=== PATIENT | male | born 1990 | race Caucasian/White ===

== ENCOUNTER 2016-08-28 19:50 | Emergency (ER) | payer OTHER ==
[~2016-08-28] VITALS: Ht 170.2 cm; Wt 59.0 kg
[2016-08-28 19:59] VITALS: BP 147/85
--- NOTE | 2016-08-28 19:59 | NUR ---
BIBA TO ER TRIAGE ROOM
[2016-08-28] MEDS ORDERED: LORazepam 1 MG TAB PO ONE ×2 (20:05→21:35)
--- NOTE | 2016-08-28 20:05 | NUR ---
ANGÉLICA FOUND WALKING AROUND [employer], HE WAS JUST WALKING AROUND, NOT MAKING SENSE, PT STATES LAST TIME HE HAS TAKEN "METH" WAS 3 DAYS AGO, PT STATES HE SMOKED WEED TODAY, PT STATES HE FEELS STRESSED OUT NOW
--- NOTE | 2016-08-28 20:09 | NUR ---
AMBULATED FROM ER BED 3 FROM TRIAGE ACCOMPANIED BY [facility] CREW
--- NOTE | 2016-08-28 21:21 | NUR ---
Patient being evaluated by physician DR DONOHUE at bedside.
[2016-08-28 22:53] VITALS: BP 137/82
--- NOTE | 2016-08-28 22:53 | NUR ---
Patient discharged with v/s stable. Written and verbal after care instructions given and explained. Patient verbalized understanding. Ambulatory with steady gait. All questions addressed prior to discharge. Advised to follow up with PMD. PT MOM IS HERE AND WILL BRING PT HOME
== END 2016-08-28 22:53 | disposition home or self-care (01) ==
LOC: MED 19:50
DX: F19.90 Other psychoactive substance use, unspecified, uncomplicated (principal); F32.9 Major depressive disorder, single episode, unspecified; F17.200 Nicotine dependence, unspecified, uncomplicated
CPT/HCPCS: 36415; 80053; 80305; 81001; 83690; 85025; 93005; 99285; G0482

== ENCOUNTER 2019-02-08 10:31 | Inpatient (IN) | payer OTHER ==
[2019-02-08] VITALS (8 sets, daily range): BP systolic 116–150; BP diastolic 75–103
[~2019-02-08] VITALS: Ht 167.6 cm; Wt 63.5 kg
--- NOTE | 2019-02-08 10:31 | NUR ---
PATIENT BIBA TO BED 4 AT THIS TIME.
--- NOTE | 2019-02-08 10:31 | NUR ---
PT PLACED IN BED 4 BY [place] [id number] AND [facility].
--- NOTE | 2019-02-08 10:40 | NUR ---
PT ARRIVED WITH O2 SAT OF 100% 10LMP WHILE RECEIVING TREATMENT, O2 SAT BEGAN TO DROP TO 85% AFTER ARRIVAL TO ED. RT CALLED TO PLACE PT ON BIPAP.
--- NOTE | 2019-02-08 10:40 | NUR ---
X RAY AT BEDSIDE.
--- NOTE | 2019-02-08 10:48 | NUR ---
PT BIB MEDICS IN RESPIRATORY DISTRESS, PLACED ON DEMPSEY V60 BIP[address] ST 12\5 RR 12 FIO2 100,PT WEARING MED SIZE MASK, IN HF ALERT,BS RALES,SPO2 WAS 80 ,INCREASED TO 100 WITH BIPAP, GEL UNDER MASK ,ABG DRAWN AND REPORTED TO DR. VERONIKA MORROW PLUGGED INTO RED OUTLET
--- NOTE | 2019-02-08 10:48 | NUR ---
INFORMED DR. BANDA OF TACHYCARDIA 168 AND TACHYPNEA 41RR AND REQUESTED MEDICATION. PER DR. BANDA, NO MEDICATION NEEDED AT THIS TIME BECAUSE PT NEEDS TO BE DIALYZED.
[2019-02-08] MEDS ORDERED: PHO667 PO (10:49)
[2019-02-08] MEDS ORDERED: METO25TE2 PO (10:49)
[2019-02-08] MEDS ORDERED: FOLI1TAB90 PO (10:49)
--- NOTE | 2019-02-08 10:56 | NUR ---
Patient being evaluated by Dr. Lee at bedside.
--- NOTE | 2019-02-08 11:00 | NUR ---
ANGÉLICA FROM DIALYSIS CENTER WAITING ROOM W C/O SOB STARTING TODAY. PT WAS GOING TO RECEIVE DIALYSIS BUT BEGAN TO HAVE SOB IN THE WAITING ROOM. PT HAS BACILIO CATH TO R UPPER CHEST, DOES NOT HAVE SHUNT YET. PT IS TACHCARDIC AT 157 BPM, RR 35. HX METH/THC ABUSE, PT DENIES RECENT METH USE, STATES HE USED MARIJUANA YESTERDAY. LUNG SOUNDS WHEEZING THROUGHOUT, BREATHING IS LABORED AND TACHYPNEIC. PT SKIN IS DIAPHORETIC. PT DENIES PAIN. LAST DIALYSIS 02/05/19, NORMALLY T, TH, SAT. BED IN LOW POSITION, SIDE RAIL UP X1
[2019-02-08 11:02] LABS: BASOPHILS # (AUTO) 0.2 K/uL (0.00-0.22); BASOPHILS % (AUTO) 1.6 % (0.0-2.0); EOSINOPHILS % (AUTO) 0.1 % (0.0-4.0); HEMATOCRIT 24.9 % (36-52); HEMOGLOBIN 7.7 g/dL (12.0-18.0); LYMPHOCYTES # (AUTO) 1.2 K/uL (2.0-11.5); LYMPHOCYTES % (AUTO) 10.4 % (20.5-51.1); MEAN CORPUSCULAR HEMOGLOBIN 28 pg (27-31); MEAN CORPUSCULAR HGB CONC 31 g/dL (33-37); MEAN CORPUSCULAR VOLUME 89.8 fL (80-94); MONOCYTES # (AUTO) 0.4 K/uL (0.8-1.0); MONOCYTES % (AUTO) 3.1 % (1.7-9.3); NEUTROPHILS # (AUTO) 9.9 K/uL (1.8-7.7); NEUTROPHILS % (AUTO) 84.8 % (42.2-75.2); PLATELET COUNT (AUTO) 173 K/uL (140-450); RED BLOOD CELL COUNT(AUTO) 2.78 MIL/uL (4.20-6.10); RED CELL DISTRIBUTION WIDTH 18.2 % (11.6-13.7); WHITE BLOOD COUNT (AUTO) 11.7 K/uL (4.8-10.8)
--- NOTE | 2019-02-08 11:15 | NUR ---
INFORMED DR. BANDA OF PERSISTENT TACHYCARDIA IN 160S AND TACHYPNEA 35-45 RR PER MIN, ADVISED WE WILL ATTEMPT TO GIVE ATIVAN TO EASE PT ANXIETY.
[2019-02-08] MEDS ORDERED: LORazepam 2 MG/ML VIAL IVP ONE (11:30)
--- NOTE | 2019-02-08 11:30 | NUR ---
PT CONTINUES WITH TACHYCARDIA AND TACHYPNEA, DR. BANDA IS AWARE
[2019-02-08 11:45] LABS: ALBUMIN 1.5 g/dL (3.4-5.0); CREATININE 10.2 mg/dL (0.7-1.3); POTASSIUM 4.5 mmol/L (3.5-5.1); TOTAL BILIRUBIN 0.6 mg/dL (0.0-1.0)
[2019-02-08 11:46] LABS: ANION GAP 21.1 (8-16); CARBON DIOXIDE 21.4 mmol/L (21-32)
[2019-02-08] MEDS ORDERED: DOCUSATE SODIUM 100 MG GELCAP PO PRN (12:20)
[2019-02-08] MEDS ORDERED: ACETAMINOPHEN 325 MG TAB PO PRN (12:20)
[2019-02-08] MEDS ORDERED: ONDANSETRON 4 MG/2 ML VIAL IM/IVP PRN (12:20)
--- NOTE | 2019-02-08 12:20 | NUR ---
RESIDENT DOCTOR TABATHA CALLED AND I ADVISED HER THAT PATIENT'S HR WAS IN THE 170'S AND BP WAS 131/95 AND THAT PT MAY NEED ICU D/T HEART RATE. DR. MAYS WILL ADMIT PT TO ICU.
--- NOTE | 2019-02-08 12:37 | NUR ---
LACTIC ACID REPORT WILL BE DELAYED D/T PROBLEMS WITH MACHINE PER VANE IN THE LAB.
--- NOTE | 2019-02-08 12:55 | NUR ---
DR. BAZAN STATED PATIENT NEEDS STAT HEMODIALYSIS, HAS ORDER ALREADY, BUT PATIENT IS STILL IN ER AT THIS TIME, CALLED ANA MARIA HOOK REGARDING PATIENT'S CONDITION AND STAT ORDER FOR HEMODIALYSIS, SHE SAID WILL ARRANGE A NURSE AND CALL ME BACK.
[2019-02-08] MEDS ORDERED: FUROSEMIDE 40 MG/4 ML VIAL IVP SCH (13:00)
[2019-02-08 13:09] LABS: FREE T4 (FREE THYROXINE) 1.09 ng/dL (0.76-1.46); MAGNESIUM 1.6 mg/dL (1.8-2.4); PHOSPHORUS 7.1 mg/dL (2.5-4.9); THYROID STIMULATING HORMONE 7.69 uIU/mL (0.34-3.74)
--- NOTE | 2019-02-08 13:14 | NUR ---
Pt report given to Jamila DOUGLAS. Transfer of care at this time.
[2019-02-08] MEDS ORDERED: ADENOSINE 6 MG/2 ML VIAL IVP SCH ×2 (13:15→13:50)
[2019-02-08] MEDS ORDERED: NITROGLYCERIN 0.4 MG TAB SL PRN (13:20)
[2019-02-08] MEDS ORDERED: ALBUTEROL SULFATE/IPRATROPIU 3 ML SOL IH PRN (13:20)
[2019-02-08] MEDS ORDERED: MORPHINE SULFATE 2 MG/ML SYR IVP SCH (13:30)
--- NOTE | 2019-02-08 13:50 | NUR ---
RECEIVED PT FROM ER. PT IS AAOX3, ABLE TO MOVE FROM GURNEY TO BED WITH MINIMAL ASSISTANCE. PT IN ON BIPAP, TACHYPNEA, LABORED BREATHING. LUNG SOUNDS CRACKLE. HOWEVER O2 SAT IS AT 98% AT THIS TIME. BP 125/84, TEMP 100.2 AXILLARY. HR 154, RR 43. PT DENIES ANY PAIN AT THIS TIME. CC: SOB. DX ESRD AND SEPSIS R/O PNA. PT HAS RIGHT BACILIO CATH ON THE CHEST FOR DIALYSIS. IV TO RIGHT HAND 20, FLUSHED, ASYMPTOMATIC. MRSA NARES SWAB DONE. FALL PRECAUTIONS IN PLACE, CALL LIGHT WITHIN REACH. INSTRUCTED PT ON HOW TO USE CALL LIGHT. WILL CONTINUE TO MONITOR.
--- NOTE | 2019-02-08 13:50 | NUR ---
DR COPPOLA IS HERE TO EVALUATE PT.
--- NOTE | 2019-02-08 13:59 | NUR ---
Patient will be admitted to care of DR. JOHNSON. Admited to ICU. Will go to room 5. Belongings list completed. Report to MISAEL BARBOZA.
--- NOTE | 2019-02-08 14:00 | NUR ---
ADENOSINE 12MG WAS GIVEN BY CHARGE NURSE TAMRA. PT STILL .
[2019-02-08] MEDS ORDERED: PANTOPRAZOLE 40 MG INJ VIAL IVP SCH (14:03)
--- NOTE | 2019-02-08 14:15 | NUR ---
ESTIMATE TIME: RECEIVED PHONE CALL FROM NORBERT DIALYSIS NURSE . PER NORBERT THE ETA TIME FOR DIALYSIS IS 8 PM .
[2019-02-08] MEDS ORDERED: DEXTROSE 50% 50 ML SYR IVP PRN (14:45)
[2019-02-08] MEDS ORDERED: INSULIN LISPRO SLIDING SCALE 100 UNITS/ML VIAL SUBQ PRN (14:45)
[2019-02-08] MEDS ORDERED: AZITHROMYCIN 500 MG in DEXTROSE 5% 250 ML IV SCH (15:00)
--- NOTE | 2019-02-08 15:00 | NUR ---
TOOK PT FOR CHEST ANGIOGRAM CT. ACCOMPANIED WITH RN, RTs AND TECH.
--- NOTE | 2019-02-08 15:20 | NUR ---
NEPHRO DR MORA CALLED, MADE HIM AWARE DIALYSIS NURSE ETA IS 8PM. DR MORA SAID THAT'S NOT ACCEPTABLE, HE WANTS TO SPEAK WITH THE DIALYSIS NURSE. I PROVIDED DIALYSIS NURSE PHONE #[phone] TO DR MORA.
--- NOTE | 2019-02-08 15:38 | NUR ---
LACTIC ACID 2.[address] HAN AND RACHEAL DOUGLAS MADE AWARE.
--- NOTE | 2019-02-08 15:45 | NUR ---
RECEIVED PHONE CALL FROM NURSING OFFICE JACEY. PER JACEY CALVILLO DIALYSIS NURSE WILL GET HERE AT 1900.
[2019-02-08] MEDS ORDERED: MAG SULF 2000 MG/WATER PREMIX 100 ML IV SCH (16:00)
[2019-02-08] MEDS ORDERED: FUROSEMIDE 100 MG in DEXTROSE 5% 100 ML IV SCH (16:00)
--- NOTE | 2019-02-08 16:05 | NUR ---
RECEIVED PHONE CALL FROM NURSING OFFICE JACEY TOUSSAINT WILL BE HERE IN 30 MINUTES.
--- NOTE | 2019-02-08 16:17 | NUR ---
PT TRYING TO SIT UP, ASKING PT WHAT HE NEEDS, HE SAID HE NEEDS TO PEE, PROVIDED PT WITH URINAL. PT DIDN'T HAVE ANY URINE.
--- NOTE | 2019-02-08 16:20 | NUR ---
RAPID RESPONSE CALLED, BECAUSE PT'S HR DROPPED DOWN TO 90S, PT'S BASELINE WAS 140-150. RR TEAM CAME 1621, PT HR STILL DROPPING TO 60S, ACTIVATED CODE BLUE 1622. PT WAS INTUBATED AFTER THE SECOND ROUND OF 2MIN OF CPR. OTHER ACLS DRUGS ADMINISTRATION, PLEASE SEE CODE BLUE RECORD. Addendum: 02/09/19 at 0708 by Eduar Mistry RN PT BECOMING NONRESPONSIVE AT 1622 AND PULSE WAS NOT FELT. CPR STARTED AND CODE BLUE ACTIVATED.
--- NOTE | 2019-02-08 16:22 | NUR ---
CODE CLARITZA CALLED ASSISTED DR BANDA WITH ACLS, 1631 PT INTUBATED SIZE 7.5 SECURED 23 CM TEETH, CXR ORDERED,1638 PT PLACED ON CARESCAPE ON A/C 25 VT 450 PEEP5 FIO2 100 ALARMS SET AND AUDIBLE, BS DIFFUSE RALES VENT PLACED INTO RED OUTLET BMV HOB 1646 CODE BLUE CALLED CPR AND ACLS DRUGS GIVEN ,[id number] PT PRONOUNCED BY DR BANDA PRESENT
[2019-02-08] MEDS ORDERED: BLOOD GLUCOSE MONITORING 1 DEV DEV FS SCH (16:30)
[2019-02-08] MEDS ORDERED: NOREPINEPHRINE 4 MG/4 ML VIAL IV ONE (16:38)
[2019-02-08] MEDS ORDERED: NOREPINEPHRINE 8 MG in DEXTROSE 5% 250 ML IV PRN (16:40)
--- NOTE | 2019-02-08 16:46 | NUR ---
PT RETURN TO ROSC AT 1638. HR RATE 157. BP 123/82. DR COPPOLA ORDERED TO START LEVOPHED. PT'S HR DROPPING AGAIN AT 1645, STEPHANIE JERRY TEAM CAME. PLEASE SEE DETAILS IN STEPHANIE JERRY RECORD. Addendum: 02/09/19 at 3516 by Eduar Mistry RN STEPHANIE JERRY ACTIVATED AT 1645
[2019-02-08] MEDS: NOREPINEPHRINE 4 MG in DEXTROSE 5% 250 ML IV PRN ×2 (16:47→18:34)
[2019-02-08] MEDS ORDERED: SEVELAMER CARBONATE 800 MG TAB PO SCH ×2 (17:00)
--- NOTE | 2019-02-08 17:16 | NUR ---
DR BANDA AND DR COPPOLA WERE HERE DURING BOTH CODE BLUE. DR BANDA PRONOUNCED AT 1716.
--- NOTE | 2019-02-08 17:25 | NUR ---
DIALYSIS NURSE NORBERT CAME.
[2019-02-08] MEDS ORDERED: ALBUTEROL SULFATE/IPRATROPIU 3 ML SOL IH SCH (19:00)
--- NOTE | 2019-02-08 19:51 | NUR ---
PHONE CALL TO CORONERS OFFICE; SPOKE WITH RENETTA; SHE SAID CROP DUSTER HELPER STILL BUSY AT THIS TIME.CROP DUSTER HELPER WILL CALL BACK.AWAITING CALL
--- NOTE | 2019-02-08 20:55 | NUR ---
FAMILY AT BEDSIDE; SPOKE WITH NANCY, SISTER; THEY HAVE NO MORTUARY YET; INFORMED OF [employer], [facility]'S CONTRACTED MORTUARY,FAMILY AGREED.
--- NOTE | 2019-02-08 21:19 | NUR ---
PHONE CALL TO CORONERS OFFICE; SPOKE WITH MIRTHA.SHE SAID ZINC PLATING MACHINE OPERATOR STILL BUSY.AWAITING CALL BACK FROM THE ZINC PLATING MACHINE OPERATOR.CED,NURSE CONDITIONING COACH AWARE.
--- NOTE | 2019-02-08 22:28 | NUR ---
PHONE CALL MADE TO CORONERS OFFICE; SPOKE WITH AUTUMN, GLASS CALIBRATOR STILL BUSY.AWAITING CALL BACK FROM GLASS CALIBRATOR.ASKED ADVICE IF WE CAN MOVE THE TO ANOTHER ROOM, ITS BEEN 5 HOURS IN THE UNIT,AUTUMN SAID SHE CANNOT GIVE ANY ADVICE REGARDING THAT.
--- NOTE | 2019-02-08 23:25 | NUR ---
NURSING INSPECTOR EYEGLASS FRAMES Tosin GREGORY RN CALLED CORONERS OFFICE.STILL AWAITING AUTO TECHNICIAN TO CALL BACK
--- NOTE | 2019-02-09 00:30 | NUR ---
PHONE CALL FROM CORONERS OFFICE; SPOKE WITH LOW PRESSURE KETTLE OPERATOR TATUM.QUESTIONS ANSWERED.BODY RELEASED BY LOW PRESSURE KETTLE OPERATOR. CASE# [id number]
--- NOTE | 2019-02-09 00:35 | NUR ---
PHONE CALL TO [facility].SPOKE WITH PAPITO.ARABIC TEACHER TIME 1 TO 2 HOURS. TRAIN STATION SERVER MIGUEL DOUGLAS NOTIFIED.
--- NOTE | 2019-02-09 00:40 | NUR ---
POST MORTEM CARE DONE.BODY TRANSFERRED TO ROOM 113
--- NOTE | 2019-02-09 01:45 | NUR ---
[employer] IN TELE UNIT TO [place]/TRACK AND FIELD COACH THE BODY.PAPER WORKS SIGNED.
[2019-02-09] MEDS ORDERED: PANTOPRAZOLE 40 MG INJ VIAL IVP SCH (09:00)
[2019-02-09 15:07] LABS: FOLIC ACID > 20.00 ng/mL (>3.0)
[2019-02-12 15:11] LABS: FERRITIN 13686 ng/mL (30 - 400); TRANSFERRIN 112 mg/dL (200 - 370)
== END 2019-02-09 01:50 | disposition expired | DRG 871 ==
LOC: MED 10:31 → MIC 12:18
PROVIDERS: ADMIT General Practice; ATTEND General Practice
PROC: 5A09357 Assistance with Respiratory Ventilation, Less than 24 Consecutive Hours, Continuous Positive Airway Pressure (ICD-10-PCS; 2019-02-08)
PROC: 0BH17EZ Insertion of Endotracheal Airway into Trachea, Via Natural or Artificial Opening (ICD-10-PCS; principal; 2019-02-09)
PROC: 5A12012 Performance of Cardiac Output, Single, Manual (ICD-10-PCS; 2019-02-09)
DX: A41.9 Sepsis, unspecified organism (principal); J18.9 Pneumonia, unspecified organism; N18.6 End stage renal disease; J96.01 Acute respiratory failure with hypoxia; I50.43 Acute on chronic combined systolic (congestive) and diastolic (congestive) heart failure; I21.A1 Myocardial infarction type 2; I13.2 Hypertensive heart and chronic kidney disease with heart failure and with stage 5 chronic kidney disease, or end stage renal disease; I47.1 Supraventricular tachycardia; I46.9 Cardiac arrest, cause unspecified; R65.20 Severe sepsis without septic shock; E02 Subclinical iodine-deficiency hypothyroidism; F12.10 Cannabis abuse, uncomplicated; E83.42 Hypomagnesemia; E83.39 Other disorders of phosphorus metabolism; D63.8 Anemia in other chronic diseases classified elsewhere; Z99.2 Dependence on renal dialysis; Z91.15 Patient's noncompliance with renal dialysis; Z86.73 Personal history of transient ischemic attack (TIA), and cerebral infarction without residual deficits
CPT/HCPCS: 36415; 36600; 71045; 71275; 80053; 82150; 82607; 82728; 82746; 82803; 82948; 83036; 83540; 83605; 83690; 83735; 83880; 84100; 84134; 84439; 84443; 84484; 85025; 85045; 85610; 85730; 87040; 92950; 93005; 93970; 94002; 94660; 96374; 96375; 99285; C9113; J0153; J0456; J0696; J1940; J2060; J2270; J3490; J7030; J7060; Q0092; Q9967